=== PATIENT | male | born 1950 | race Caucasian/White ===

== ENCOUNTER 2019-12-21 12:30 | Emergency (ER) | payer MEDICARE, SELFPAY ==
[2019-12-21 12:38] VITALS: BP 152/101; PULSE 97; RESP 18; TEMP 36.7; O2SAT 93; BMI 46.0
--- NOTE | 2019-12-21 13:57 | ED_ITS ---
Entered by Ilana Turcios, acting as scribe for Zully Pearl Dec 21, 2019 12:30 HPI - Neuro Symptoms/Deficit General: Chief Complaint: Neuro Symptoms/Deficit Stated Complaint: LEFT SIDE FACE DROOP Time Seen by Provider: 12/21/19 13:57 Source: patient, family and RN notes reviewed Mode of arrival: ambulatory Limitations: no limitations History of Present Illness: HPI Narrative: 68 yo male presents to ED with complaints of L facial weakness and drooping. His L eye will not close. He said this began on Wednesday (2 days ago). He said he has not had this happen before. He denies any weakness or numbness of his upper extremities, difficulty with speech or being off balance. Onset (ago): day(s) (2) Timing confirmed by: spouse and family member Location: left face History of same: No Severity: severe Quality: weak (L side face) Relieving factors: none Exacerbating factors: none Context: sudden onset On Anticoagulants: No Associated symptoms: Reports weakness (L side facial weakness) and other (L eye will not close); Deny chest pain, diaphoresis, headache(s), malaise, nausea, syncope, vertigo or vomiting Treatments Prior to Arrival: none Review of Systems General: Reports: other (negative unless marked) Const: Denies: fever, chills, body aches, fatigue, malaise or diaphoresis Eyes: Denies: change in vision or blurry vision ENMT: Denies: throat pain, painful swallowing, hoarseness, ear pain, ear discharge, Change in hearing or nasal discharge Card: Denies: chest pain, palpitations, irregular heart rhythm, syncope, pre- syncope, shortness of breath on exertion or shortness of breath when lying down Resp: Denies: shortness of breath, productive cough, non-productive cough, wheezing, coughing up blood or chest congestion GI: Denies: abdominal pain, nausea, vomiting, vomiting blood, coffee grounds in vomit, diarrhea, constipation, cramping, blood in stool or black tarry stool : Denies: flank pain, difficulty urinating, painful urination, urinary frequency, urinary urgency, decreased urine ouput, urinary incontinence or blood in urine Musc: Denies: neck pain, back pain, extremity pain, extremity swelling, joint pain, joint swelling, joint warmth or joint stiffness Skin/Breast: Denies: rash, skin tenderness or yellow skin Neuro: Denies: headache, numbness in extremities, weakness in extremities, changes in sensation, lack of coordination, difficulty walking, dizziness, vertigo or confusion Endo: Denies: excessive thirst, tired all the time, cold intolerance, excessive sweating, flushing or hot flashes Baltazar/Lymph: Denies: easy bruising, easy bleeding, petechiae or enlarged lymph nodes All/Imm: Denies: hives, throat swelling, tongue swelling, facial swelling or acute wheezing PFSH ED PFSH: Social History Smoking and tobacco status: former smoker Physical Exam Const: COMMON NORMALS: no apparent distress, oriented x3, no limitations, healthy appearing and well nourished EXAM LIMITATIONS: no altered mental status GENERAL APPEARANCE: cooperative, well kempt and well developed ORIENTATION/CONSCIOUSNESS: Yes awake HENMT: COMMON NORMALS: normocephalic, head/scalp atraumatic, hearing grossly normal bilaterally, external ears normal, EAC's normal, external nose normal and moist oral mucous membranes HEAD & SCALP: normal to inspection, normocephalic and atraumatic FACE & SINUS: normal facial exam and other (Left forehead and face with paralysis. Inability to close the left eye.) NOSE: external nose normal and nares normal EXTERNAL EAR: Yes external ears normal EXTERNAL AUDITORY CANAL: EAC's normal MOUTH: oral and palatal mucosa normal and tongue normal Eye: COMMON NORMALS: PERRL, EOMs intact bilaterally, conjunctivae normal and no scleral icterus GENERAL EYE: normal light reflex CONJUNCTIVA: Yes conjunctivae normal SCLERA: sclerae normal CORNEA: Yes corneas normal PUPIL: Yes PERRL DIRECT OPHTHALMOSCOPY: Yes normal light reflex Neck/C-Spine: COMMON NORMALS: full ROM, no lymphadenopathy, supple, no meningeal signs and no JVD GENERAL: Yes normal visual inspection and Yes trachea midline CERVICAL SPINE: Yes cervical ROM normal Chest: COMMONS NORMALS: inspection of chest normal and palpation of chest normal Resp: COMMON NORMALS: normal respiratory effort, no retractions, no use of accessory muscles and clear to auscultation bilaterally EFFORT & INSPECTION: Yes able to speak in complete sentences AUSCULTATION: clear to auscultation bilaterally Cardio: COMMON NORMALS: no JVD, regular rate, regular rhythm, S1 normal heart sound, S2 normal heart sound, no gallops, no clicks, no murmurs and no rub JUGULAR VENOUS DISTENTION: no JVD RATE: regular rate RHYTHM: regular rhythm HEART SOUNDS: S1 normal and S2 normal GI: COMMON NORMALS: soft to palpation, non-tender, no hepatosplenomegaly and no masses INSPECTION: Yes normal to inspection PALPATION: Yes soft and Yes no hepatosplenomegaly : COMMON NORMALS: Yes no CVA tenderness BLADDER/KIDNEY EXAM: Yes no CVA tenderness Back/Pelvis: COMMON NORMALS: no CVA tenderness, thoracic and lumbar spine normal to inspection, no thoracic nor lumbar tenderness and thoraco-lumbar ROM normal Extremity: COMMON NORMALS: normal to inspection, full ROM, normal capillary refill, no joint enlargement, no clubbing, cyanosis or edema and no calf tenderness Neuro: COMMON NORMALS: oriented x3, moves all extremities, no focal motor deficits, no sensory deficits noted and gait normal MENINGEAL SIGNS: Yes no meningeal signs CRANIAL NERVES: Yes other (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.) Psych: COMMON NORMALS: mental status grossly normal, thought process normal, cooperative, affect normal, speech normal and activity/motor behavior normal APPEARANCE: Yes well kempt SPEECH: Yes normal speech THOUGHT PROCESS: normal thought process Skin: COMMON NORMALS: no rashes or lesions noted, skin turgor normal, no jaundice, no petechiae and no mottling GENERAL SKIN EXAM: no rashes or lesions noted and turgor normal Course Vital Signs: Vital signs: Vital Signs Temperature 98.1 F 12/21/19 12:38 Pulse Rate 89 12/21/19 14:41 Respiratory Rate 16 12/21/19 14:41 Blood Pressure 134/88 12/21/19 14:41 Pulse Oximetry 94 12/21/19 14:41 MDM - Neuro Symptoms/Deficit MDM Narrative: Medical decision making narrative: The patient signs and symptoms are consistent with Nichole's palsy. He declines any further testing. He wants to go home. I will place him on Lacri-Lube, prednisone and valacyclovir. There is no other sign or symptom of stroke at this time. Discharge Plan Discharge Patient Disposition: Home, Self-Care Clinical Impression: Nichole's palsy Condition: Stable Prescriptions: New valacyclovir 1 gram tablet 1,000 mg PO TID 7 Days Qty: 21 RF: 0 Refresh Lacri-Lube 56.8-42.5 % ointment 1 applic ophthalmic (eye) Q2H Qty: 7 RF: 0 No Action atorvastatin 80 mg tablet 80 mg PO DAILY RF: 0 lisinopril-hydrochlorothiazide 20-25 mg tablet 20 - 25 tab PO DAILY RF: 0 ezetimibe 10 mg tablet 10 mg PO DAILY RF: 0 potassium gluconate 595 mg (99 mg) Tablet 595 mg PO DAILY RF: 0 Tart Almanza [id number] mg Capsule 1 cap PO DAILY RF: 0 Discharge Orders: Discharge Order (Routine); Ordered 12/21/19 Ordered By: Zully Pearl Referrals: Quynh Mancera DO [Primary Care Provider] - 1-3 days Discharge Diet: Advance as tolerated Discharge Activity: Increase activity as tolerated Patient Instructions: Nichole Palsy (ED) Activity Restrictions/Additional Instructions: Please return to the ER immediately for any of the signs or symptoms listed on your discharge instruction sheets, worsening/changing of your symptoms, you are not getting better as quickly as expected, or for ANY other cause or concerns. Remember to tape your eye closed at night as instructed by me and demonstrated by me and nursing. Fill your prescriptions as I have prescribed them including the handwritten prescription for prednisone. Return to the ER for any cause for concern. Discharge Date/Time: 12/21/19 14:41 Coding Level of Care Code ED Digital Content Coordinator for Chg Fwd Exam Comprehensive The documentation recorded by the Karolina ramos Valerie R, accurately reflects the service I personally performed and the decisions made by Dae fuentes Eli N Dec 21, 2019 12:30
[2019-12-21] MEDS: predniSONE 20 mg Tablet 40 MG PO (14:27)
[2019-12-21] MEDS: valACYclovir 1,000 mg Tablet 1000 MG PO (14:27)
[2019-12-21 14:30] VITALS: PULSE 89; RESP 15; O2SAT 94
[2019-12-21 14:41] VITALS: BP 134/88; PULSE 89; RESP 16; O2SAT 94
== END 2019-12-21 14:41 | disposition home or self-care (01) ==
PROVIDERS: Emergency Provider Emergency Medicine; Family Provider Family Medicine; PCP Family Medicine
DX: G51.0 Bell's palsy (principal); Z87.891 Personal history of nicotine dependence
CPT/HCPCS: 12345; 99282; 99283; J7512